=== PATIENT | female | born 1935 | race Caucasian/White ===

== ENCOUNTER 2017-03-03 01:01 | Emergency (ER) | payer MEDICARE, BC ==
--- NOTE | 2017-03-03 02:00 | EDM.PDOC ---
ED HPI GENERAL MEDICAL PROBLEM - General Chief Complaint: General Stated Complaint: FALL WITH HIP PAIN Time Seen by Provider: 03/03/17 01:30 Source of Information: Reports: Patient History Limitations: Reports: No Limitations - History of Present Illness INITIAL COMMENTS - FREE TEXT/NARRATIVE: According to patient she was in the toilet and she was on a 6 inch step stool by the commode, fell on to her right side and hit her right shoulder of the wall and also landed on her right hip. She claims since then she has not walked. C/o pain over the lateral aspect of the hip. No bruising or swelling around the shoulder or hip. EMS was called and brought into the emergency room. Pt had right shoulder replacement at [facility] in Dec 2016. Onset: Today Onset Date: 03/03/17 Onset Time: 01:00 Location: Reports: Upper Extremity, Right, Lower Extremity, Right Severity: Moderate Improves with: Reports: None Worsens with: Reports: None Associated Symptoms: Denies: Confusion, Chest Pain, Fever/Chills, Nausea/ Vomiting, Rash, Seizure, Shortness of Breath, Syncope, Weakness ED ROS GENERAL - Review of Systems Review Of Systems: See Below Constitutional: Denies: Fever, Chills HEENT: Denies: Rhinitis, Throat Pain Respiratory: Denies: Cough, Sputum Cardiovascular: Denies: Chest Pain, Blood Pressure Problem GI/Abdominal: Denies: Abdominal Pain, Nausea, Vomiting Musculoskeletal: Reports: Shoulder Pain, Joint Pain. Denies: Joint Swelling Skin: Denies: Bruising, Erythema ED EXAM, GENERAL - Physical Exam Exam: See Below Exam Limited By: No Limitations General Appearance: Alert, WD/WN, Anxious, Mild Distress Eye Exam: Bilateral Eye: EOMI, PERRL Ears: Normal External Exam, Normal Canal, Hearing Grossly Normal, Normal TMs Ear Exam: Bilateral Ear: Auricle Normal, Canal Normal, TM normal Nose: Normal Inspection, Normal Mucosa, No Blood Throat/Mouth: Normal Inspection, Normal Lips, Normal Teeth, Normal Gums, Normal Oropharynx, Normal Voice, No Airway Compromise Head: Atraumatic, Normocephalic Neck: Normal Inspection, Supple, Non-Tender, Full Range of Motion Respiratory/Chest: No Respiratory Distress, Lungs Clear, Normal Breath Sounds, No Accessory Muscle Use, Chest Non-Tender Cardiovascular: Normal Peripheral Pulses, Regular Rate, Rhythm, No Edema, No Gallop, No JVD, No Murmur, No Rub Peripheral Pulses: 2+: Radial (L), Radial (R) GI/Abdominal: Normal Bowel Sounds, Soft, Non-Tender, No Organomegaly, No Distention, No Abnormal Bruit, No Mass Extremities: Other (Right shoulder: There is scar over the anterior aspect of the shoulder. There is no swelling or bruising of the shoulder. Pt adduct the arm to midchest level.Pt does have good internal and external rotation of the arm. On palpation pt is tender all over the shoulder joint. Right Hip: There is no obvious deformity or swelling around the hip. Pt can flex her hip without discomfort. On palaption around the hip, she is tender over the right greater trochanter to deep pressure. Able to bear weight and walk.) Neurological: Alert, Oriented Course - Vital Signs Text/Narrative:: Right Shoulder: There is no swelling or bruising of the shoulder, she does have good ROM. I did get Xray of the shoulder. Prosthesis is in place and hardware appears normal. I did send the Xray to [facility] for comparison as there are no previous films as she has her care through [facility]. I did get call back from [facility] form 's team. Agrees that the prosthesis is in pal c with no obvious fracture. Advised to continue therapy. Pt was advised to call Dr. Morillo's office on Sunday if she has any significant pain or discomfort. Right Hip; pt is able to flex and extend her hip. She is weight bearing on the rigth lower extremity. Her right hip xray appears normal. reassure that she has soft tissue pain. Pt did receive toradol 30mg IM. her pain in the shoulder and hip improved. Advised to continue tyelnol as needed for pain. Followup with Dr. Morillo's office if her shoulder pain worsens. Also advised to followup with her primary care provider next week. - Orders/Labs/Meds Orders: Active Orders 24 hr Category Date Time Status Hip Min 1V Rt [CR] Stat Exams 03/03/17 01:48 Taken Shoulder 1V Rt [CR] Stat Exams 03/03/17 01:48 Taken Meds: Medications Discontinued Medications Generic Name Dose Route Start Last Admin Trade Name Freq PRN Reason Stop Dose Admin Ketorolac Tromethamine 30 mg 03/03/17 02:27 Toradol IM 03/03/17 02:28 ONETIME ONE Departure - Departure Time of Disposition: 03:00 Disposition: Home, Self-Care 01 Condition: Fair Clinical Impression: Right shoulder pain, Right hip pain - Discharge Information Forms: ED Department Discharge Additional Instructions: Right Shoulder: There is no swelling or bruising of the shoulder, she does have good ROM. I did get Xray of the shoulder. Prosthesis is in place and hardware appears normal. I did send the Xray to [facility] for comparison as there are no previous films as she has her care through [facility]. I did get call back from [facility] form 's team. Agrees that the prosthesis is in pal c with no obvious fracture. Advised to continue therapy. Pt was advised to call Dr. Morillo's office on Sunday if she has any significant pain or discomfort. Right Hip; pt is able to flex and extend her hip. She is weight bearing on the rigth lower extremity. Her right hip xray appears normal. reassure that she has soft tissue pain. Pt did receive toradol 30mg IM. her pain in the shoulder and hip improved. Advised to continue tyelnol as needed for pain. Followup with Dr. Morillo's office if her shoulder pain worsens. Also advised to followup with her primary care provider next week. - Problem List & Annotations (1) Right hip pain SNOMED Code(s): 00224127 Code(s): M25.551 - PAIN IN RIGHT HIP Status: Acute (2) Right shoulder pain SNOMED Code(s): 69120409 Code(s): M25.511 - PAIN IN RIGHT SHOULDER Status: Acute - Problem List Review Problem List Initiated/Reviewed/Updated: Yes - My Orders Last 24 Hours: My Active Orders 03/03/17 01:48 Hip Min 1V Rt [CR] Stat Shoulder 1V Rt [CR] Stat - Assessment/Plan Last 24 Hours: My Active Orders 03/03/17 01:48 Hip Min 1V Rt [CR] Stat Shoulder 1V Rt [CR] Stat Assessment:: Right shoulder and right hip pain s/p fall Plan: Right Shoulder: There is no swelling or bruising of the shoulder, she does have good ROM. I did get Xray of the shoulder. Prosthesis is in place and hardware appears normal. I did send the Xray to [facility] for comparison as there are no previous films as she has her care through [facility]. I did get call back from [facility] form 's team. Agrees that the prosthesis is in pal c with no obvious fracture. Advised to continue therapy. Pt was advised to call Dr. Morillo's office on Sunday if she has any significant pain or discomfort. Right Hip; pt is able to flex and extend her hip. She is weight bearing on the rigth lower extremity. Her right hip xray appears normal. reassure that she has soft tissue pain. Pt did receive toradol 30mg IM. her pain in the shoulder and hip improved. Advised to continue tyelnol as needed for pain. Followup with Dr. Morillo's office if her shoulder pain worsens. Also advised to followup with her primary care provider next week.
[2017-03-03] MEDS ORDERED: Ketorolac 30 MG/ML SDV IM ONE (02:27)
--- NOTE | 2017-03-04 20:20 | CR ---
DATE OF SERVICE: 03/03/2017 CLINICAL DATA: Shoulder injury. RIGHT SHOULDER A single AP view was performed. The patient is status post right total shoulder arthroplasty. No acute abnormalities are noted. A single view is, however, inadequate. [id number] [facility]
--- NOTE | 2017-03-04 20:23 | CR ---
DATE OF SERVICE: 03/03/2017 CLINICAL DATA: Fall. RIGHT HIP A single view was performed. There is diffuse osteopenia. I do not see evidence of a fracture or dislocation. There is a moderate amount of stool noted within the colon. [id number] [facility]
== END 2017-03-03 03:00 | disposition home or self-care (01) ==
LOC: LB.ED 01:01
DX: M25.511 Pain in right shoulder (principal); M25.551 Pain in right hip
CPT/HCPCS: 73020; 73501; 96372; 99283; A0425; A0429; J1885

== ENCOUNTER 2020-06-01 00:24 | Observation (INO) | payer MEDICARE, BC ==
--- NOTE | 2020-06-01 01:23 | EDM.PDOC ---
ED HPI GENERAL MEDICAL PROBLEM - General Chief Complaint: General Stated Complaint: FALL Time Seen by Provider: 06/01/20 01:00 Source of Information: Reports: Patient, EMS History Limitations: Reports: No Limitations - History of Present Illness INITIAL COMMENTS - FREE TEXT/NARRATIVE: 84 years old female known patient of osteoarthritis with S/p multiple joint replacement awoke at 11.30 PM for rest room & she forgot to hold her cane .She tipped her toe fell and landed on right side of body.she was brought here by EMS . She denies any h/o loss of consciousness before or after the fall. She had is c/o pain on right cheek,neck ,right hip & right knee.The pain is sharp 8/10 . denies fever,nausea ,vomiting ,headache ,chest pain,wheezing or shortness of breath ,abd pain Onset: Today, Sudden (3) Duration: Hour(s): (3) Location: Reports: Face, Pelvis, Lower Extremity, Right Quality: Reports: Sharp Severity: Moderate Improves with: Reports: None Worsens with: Reports: Movement Right Hip Pain Score (Numeric/FACES): 7 - Related Data Allergies Allergy/AdvReac Type Severity Reaction Status Date / Time acetaminophen Allergy Change Verified 06/01/20 00:52 [From Tylenol-Codeine #3] Mental Status codeine Allergy Change Verified 06/01/20 00:52 [From Tylenol-Codeine #3] Mental Status Penicillins Allergy Cannot Verified 06/01/20 00:52 Remember Sulfa (Sulfonamide Allergy Cannot Verified 06/01/20 00:52 Antibiotics) Remember Home Meds: Home Meds Acetaminophen [Tylenol Extra Strength] 500 mg PO ASDIRECTED 03/03/17 [History] Calcium Carbonate [Calcium] 600 mg PO DAILY 03/03/17 [History] Esomeprazole [NexIUM] 40 mg PO DAILY 03/03/17 [History] Aspirin 81 mg PO DAILY 06/01/20 [History] Past Medical History HEENT History: Reports: Impaired Vision Cardiovascular History: Reports: Blood Clots/VTE/DVT Respiratory History: Reports: PE Gastrointestinal History: Reports: [employer] History: Reports: Psychiatric History: Reports: Anxiety - Past Surgical History Musculoskeletal Surgical History: Reports: Knee Replacement, Shoulder Repl acement Social & Family History - Family History Family Medical History: No Pertinent Family History - Caffeine Use Caffeine Use: Reports: Coffee ED ROS GENERAL - Review of Systems Review Of Systems: See Below Constitutional: Reports: No Symptoms HEENT: Reports: No Symptoms Respiratory: Reports: No Symptoms, Shortness of Breath, Wheezing, Cough, Sputum Cardiovascular: Reports: No Symptoms, Chest Pain, Dyspnea on Exertion GI/Abdominal: Reports: No Symptoms, Abdominal Pain Musculoskeletal: Reports: Neck Pain, Back Pain, Leg Pain Skin: Reports: Other (bruise over right cheek 7 over right knee) Neurological: Reports: No Symptoms, Headache ED EXAM, GENERAL - Physical Exam Exam: See Below Exam Limited By: No Limitations General Appearance: Alert, WD/WN, No Apparent Distress Head: Atraumatic, Normocephalic (bruise present over the right zygomatic area -) Respiratory/Chest: No Respiratory Distress, Lungs Clear, Normal Breath Sounds, No Accessory Muscle Use, Chest Non-Tender Cardiovascular: Normal Peripheral Pulses, Regular Rate, Rhythm, No Edema, No Gallop, No JVD, No Murmur, No Rub GI/Abdominal: Normal Bowel Sounds, Soft, Non-Tender, No Organomegaly, No Distention, No Abnormal Bruit, No Mass Extremities: Normal Inspection, Non-Tender, Leg Pain (bruise present over right knee ), Limited Range of Motion Neurological: Alert, Oriented, CN II-XII Intact Course - Vital Signs Text/Narrative:: 84 year old female came with h/o fall with multiple injuries vital monitored X ray right hip & right knee ordered ct head ,ct neck ,ct thoracic & ct lumbar spine ordered EKG ordered that shows nonspecific changes -consulted [place] hospitalist & he recommended to repeat troponin in the morning after 4 hours troponin is elevated & I will repeat troponin after 4 hours X ray right knee normal X ray right knee normal CT lumbar spine normal CT thoracic spine normal CT cervical spine normal CT head normal star I/V hydration + 1mg of Dilaudid + Zofran PT/OT consult in morning to asses risk of fall patient is at higher risk of fall ,I decided to admit her her for observation Last Recorded V/S: Last Vital Signs Temp 98.1 F 06/01/20 08:26 Pulse 90 06/01/20 08:26 Resp 18 06/01/20 08:26 BP 150/92 H 06/01/20 08:26 Pulse Ox 99 06/01/20 08:26 - Orders/Labs/Meds Orders: Active Orders 24 hr Category Date Time Status EKG Documentation Completion [RC] ASDIRECTED Care 06/01/20 02:05 Active Medication Orders Sodium Chloride (Normal Saline) 1,000 mls @ 125 mls/hr IV ASDIRECTED MARCIA Last Admin: 06/01/20 03:40 Dose: 125 mls/hr Documented by: IZA Sodium Chloride (Saline Flush) 10 ml FLUSH ASDIRECTED PRN PRN Reason: Keep Vein Open Labs: Laboratory Tests 06/01/20 06/01/20 06/01/20 Range/Units 02:04 02:04 02:10 WBC 9.2 (4.0-11.0) K/uL RBC 4.13 (3.80-5.80) M/uL Hgb 11.9 (11.5-16.5) g/dL Hct 37.2 (37.0-47.0) % MCV 90 (76-96) fL MCH 28.8 (27.0-32.0) pg MCHC 32.0 (31.0-35.0) g/dL RDW 14.4 (11.0-16.0) % Plt Count 300 (150-500) K/uL MPV 11.0 H (6.0-10.0) fL Neut % (Auto) 71.3 H (45.0-70.0) % Lymph % (Auto) 17.4 L (20.0-40.0) % [place] % (Auto) 9.2 (3.0-10.0) % Eos % (Auto) 1.1 (1.0-5.0) % Baso % (Auto) 1.0 H (0.0-0.5) % Neut # (Auto) 6.57 (2.00-7.50) K/uL Lymph # (Auto) 1.60 (1.50-4.00) K/uL [facility] # (Auto) 0.85 H (0.20-0.80) K/uL Eos # (Auto) 0.10 (0.04-0.40) K/uL Baso # (Auto) 0.09 (0.02-0.10) K/uL Sodium 143 (136-145) mmol/L Potassium 3.0 L (3.5-5.1) mmol/L Chloride 105 (98-107) mmol/L Carbon Dioxide 26.1 (21.0-32.0) mmol/L Anion Gap 14.9 (5.0-15.0) mmol/L BUN 23 (8-26) mg/dL Creatinine 1.09 H (0.55-1.02) mg/dL Est Cr Clr Drug Dosing 37.42 mL/min Estimated GFR (MDRD) 48 L (>60) MLS/MIN BUN/Creatinine Ratio 21.1 (6-25) Glucose 94 (74-100) mg/dL Calcium 9.0 (8.5-10.1) mg/dL Total Bilirubin 0.4 (0.0-1.0) mg/dL AST 25 (15-37) U/L ALT 24 (12-78) U/L Alkaline Phosphatase 59 (46-116) U/L Troponin I 0.660 H* (0.000-0.060) ng/mL Total Protein 6.6 (6.4-8.2) g/dL Albumin 3.8 (3.4-5.0) g/dL Globulin 2.8 (2.2-4.2) g/dL Albumin/Globulin Ratio 1.4 (0.8-2.0) Urine Color Urine Appearance (CLEAR) Urine pH (5.0-8.0) Ur Specific [place] (1.003-1.030) Urine Protein (NEGATIVE) mg/dL Urine Glucose (UA) (NEGATIVE) mg/dL Urine Ketones (NEGATIVE) mg/dL Urine Occult Blood (NEGATIVE) Urine Nitrite (NEGATIVE) Urine Bilirubin (NEGATIVE) Urine Urobilinogen (0.2-1.0) E.U./dL Ur Leukocyte Esterase (NEGATIVE) Urine RBC /HPF Urine WBC /HPF Ur Epithelial Cells /HPF Urine Bacteria /HPF SARS-CoV-2 RNA (BALTAZAR) Negative (NEGATIVE) 06/01/20 Range/Units 02:30 WBC (4.0-11.0) K/uL RBC (3.80-5.80) M/uL Hgb (11.5-16.5) g/dL Hct (37.0-47.0) % MCV (76-96) fL MCH (27.0-32.0) pg MCHC (31.0-35.0) g/dL RDW (11.0-16.0) % Plt Count (150-500) K/uL MPV (6.0-10.0) fL Neut % (Auto) (45.0-70.0) % Lymph % (Auto) (20.0-40.0) % [place] % (Auto) (3.0-10.0) % Eos % (Auto) (1.0-5.0) % Baso % (Auto) (0.0-0.5) % Neut # (Auto) (2.00-7.50) K/uL Lymph # (Auto) (1.50-4.00) K/uL [facility] # (Auto) (0.20-0.80) K/uL Eos # (Auto) (0.04-0.40) K/uL Baso # (Auto) (0.02-0.10) K/uL Sodium (136-145) mmol/L Potassium (3.5-5.1) mmol/L Chloride (98-107) mmol/L Carbon Dioxide (21.0-32.0) mmol/L Anion Gap (5.0-15.0) mmol/L BUN (8-26) mg/dL Creatinine (0.55-1.02) mg/dL Est Cr Clr Drug Dosing mL/min Estimated GFR (MDRD) (>60) MLS/MIN BUN/Creatinine Ratio (6-25) Glucose (74-100) mg/dL Calcium (8.5-10.1) mg/dL Total Bilirubin (0.0-1.0) mg/dL AST (15-37) U/L ALT (12-78) U/L Alkaline Phosphatase (46-116) U/L Troponin I (0.000-0.060) ng/mL Total Protein (6.4-8.2) g/dL Albumin (3.4-5.0) g/dL Globulin (2.2-4.2) g/dL Albumin/Globulin Ratio (0.8-2.0) Urine Color Yellow Urine Appearance Clear (CLEAR) Urine pH 7.0 (5.0-8.0) Ur Specific [place] 1.020 (1.003-1.030) Urine Protein Trace H (NEGATIVE) mg/dL Urine Glucose (UA) Negative (NEGATIVE) mg/dL Urine Ketones Negative (NEGATIVE) mg/dL Urine Occult Blood Trace-intact H (NEGATIVE) Urine Nitrite Negative (NEGATIVE) Urine Bilirubin Negative (NEGATIVE) Urine Urobilinogen 0.2 (0.2-1.0) E.U./dL Ur Leukocyte Esterase Negative (NEGATIVE) Urine RBC 0-5 H /HPF Urine WBC 0-5 H /HPF Ur Epithelial Cells Few /HPF Urine Bacteria Few /HPF SARS-CoV-2 RNA (BALTAZAR) (NEGATIVE) Meds: Medications Generic Name Dose Route Start Last Admin Trade Name Freq PRN Reason Stop Dose Admin Sodium Chloride 1,000 mls @ 125 mls/hr 06/01/20 02:45 06/01/20 03:40 Normal Saline IV 125 mls/hr ASDIRECTED MARCIA Administration Sodium Chloride 10 ml 06/01/20 02:40 Saline Flush FLUSH ASDIRECTED PRN Keep Vein Open Discontinued Medications Generic Name Dose Route Start Last Admin Trade Name Freq PRN Reason Stop Dose Admin Hydromorphone HCl 1 mg 06/01/20 02:40 06/01/20 03:13 Dilaudid IVPUSH 06/01/20 02:41 1 mg ONETIME ONE Administration Hydromorphone HCl Confirm 06/01/20 03:10 06/01/20 03:13 Dilaudid Administered 06/01/20 03:11 Not Given Dose 2 mg .ROUTE .STK-MED ONE Ondansetron HCl 4 mg 06/01/20 03:10 06/01/20 03:13 Zofran IVPUSH 06/01/20 03:11 4 mg ONETIME ONE Administration Ondansetron HCl Confirm 06/01/20 03:21 06/01/20 03:54 Zofran Administered 06/01/20 03:22 Not Given Dose 4 mg .ROUTE .STK-MED ONE Departure - Departure Time of Disposition: 03:00 Disposition: Refer to Observation Clinical Impression: Fall (on) (from) other stairs and steps, initial encounter - Discharge Information Sepsis Event Note (ED) - Focused Exam Vital Signs: Vital Signs Temp Pulse Resp BP Pulse Ox 06/01/20 00:53 98.8 F 86 18 183/96 H 100 06/01/20 00:32 98.8 F 86 18 183/96 H 100 - Problem List & Annotations (1) Fall (on) (from) other stairs and steps, initial encounter SNOMED Code(s): 399427553 Code(s): W10.8XXA - FALL (ON) (FROM) OTHER STAIRS AND STEPS, INITIAL ENCOUNTER Status: Acute Priority: Medium Current Visit: Yes (2) Dizziness SNOMED Code(s): 868184279, 106412228 Code(s): R42 - DIZZINESS AND GIDDINESS Status: Acute Priority: Medium Current Visit: Yes Onset Date: ~06/01/20 - My Orders Last 24 Hours: My Active Orders 06/01/20 02:05 EKG Documentation Completion [RC] ASDIRECTED - Assessment/Plan Last 24 Hours: My Active Orders 06/01/20 02:05 EKG Documentation Completion [RC] ASDIRECTED Plan: As patient is feeling dizzy ,& had elevated troponin , I decided to admit her observation to check troponin in the morning Also to check risk of fall by Physical therapist
[2020-06-01] MEDS ORDERED: HYDROmorphone 2 MG/ML SDV IVPUSH ONE (02:40)
[2020-06-01] MEDS ORDERED: Sodium Chloride 0.9% 10 ML Syringe FLUSH PRN (02:40)
[2020-06-01] MEDS ORDERED: Sodium Chloride 0.9% 1,000 ML IV SCH (02:45)
[2020-06-01] MEDS ORDERED: Ondansetron 4 MG/2 ML SDV IVPUSH ONE (03:10)
[2020-06-01] MEDS ORDERED: HYDROmorphone 2 MG/ML SDV ONE ×2 (03:10→10:52)
[2020-06-01] MEDS ORDERED: Ondansetron 4 MG/2 ML SDV ONE (03:21)
--- NOTE | 2020-06-01 08:32 | CR ---
Date of Service: 06/01/20 Clinical Data: FALL RIGHT KNEE: No priors. The patient is status post right total knee arthroplasty. The prosthesis appears intact. No acute abnormalities. No lytic or blastic bone lesions. There is a small joint effusion. [id number] [facility]
--- NOTE | 2020-06-01 08:36 | CT ---
Date of Service: 06/01/20 Clinical Data: FALL UNENHANCED BRAIN CT: Multislice acquisition through the brain without IV contrast was performed. Comparison is made to a prior exam dated 12/03/10. There is diffuse cerebral atrophy. There are periventricular lucencies bilaterally consistent with small vessel ischemic change. No masses or mass effect. No intracranial hemorrhage. No evidence of acute or subacute infarct. There is soft tissue swelling adjacent to the right maxilla. No fractures. IMPRESSION: No acute intracranial abnormalities. [id number] [facility]
--- NOTE | 2020-06-01 08:38 | CR ---
Date of Service: 06/01/20 Clinical Data: FALL RIGHT HIP: No acute fracture or dislocation. No lytic or blastic bone lesions. Mild osteoarthritic change of the right hip joint. [id number] [facility]
--- NOTE | 2020-06-01 08:43 | CT ---
Date of Service: 06/01/20 Clinical Data: FALL CERVICAL SPINE CT: Multislice axial acquisition was performed. Axial images and sagittal and coronal reformations are reviewed. The vertebral bodies are of average height and in good alignment. No acute fracture or dislocation. No lytic or blastic bone lesions. There is degenerative disk disease at multiple levels with disk space narrowing at the C5-6 level. There is facet joint hypertrophy throughout the cervical spine. There are degenerative changes involving the atlantoaxial articulation. The lung apices are clear. No lytic or blastic bone lesions. IMPRESSION: No acute abnormalities. Other findings as discussed above. [id number] [facility]
--- NOTE | 2020-06-01 08:47 | CT ---
Date of Service: 06/01/20 Clinical Data: FALL LUMBAR SPINE CT: Multislice axial acquisition from T10 to S4 was performed. Axial images and sagittal and coronal reformations are reviewed. The vertebral bodies are of average height and in good alignment. No acute fracture or dislocation. There is severe degenerative disk disease throughout the lower thoracic and lumbar spine. There is facet joint hypertrophy throughout the lumbar spine. No focal lytic or blastic bone lesions. There is a large amount of stool present throughout the visualized colon. IMPRESSION: No acute abnormalities. Multiple other findings as discussed above. [id number] [facility]
--- NOTE | 2020-06-01 08:51 | CT ---
Date of Service: 06/01/20 Clinical Data: FALL THORACIC SPINE CT: Multislice axial acquisition was performed. Axial images and sagittal and coronal reformations are reviewed. There is diffuse osteopenia. The vertebral bodies are of average height and in good alignment. No acute fracture or dislocation. There is degenerative disk disease throughout the thoracic spine with disk space narrowing diffusely. There is facet joint hypertrophy throughout the thoracic spine. No lytic or blastic bone lesions. There are atelectatic changes of the dependent portions of both lungs. There is a large hiatal hernia. No other significant findings. IMPRESSION: No acute abnormalities. Multiple other findings as discussed above. [id number] [facility]
[2020-06-01] MEDS ORDERED: Sodium Chloride 0.9% 50 ML SDV FLUSH ONE (10:31)
[2020-06-01] MEDS ORDERED: Iodixanol 652 MG/ML 100 ML Bottle IV SCH (10:45)
--- NOTE | 2020-06-01 11:40 | PCM.DCSUM1 ---
Discharge Summary - Hospital Course Free Text/Narrative:: 84 year old female came to ED with c/o fall during last night - She awoke for bath room at night & tipped her toe & landed on right side of body .she had a bruise & swelling on right zygomatic arch .Tenderness also present on right zygomatic arch & right knee . she was a little dizzy & c/o pain on right side of body ,especially on right hip & right knee. CT head ,neck,thoracic ,lumbar spine were negative.X ray right hip & knee were negative . I also did labs that showed elevated troponin -I did EKG that shows non-specific changes -I consulted E hospitalist regarding EKG -He recommended to repeat troponin after 4 hours which was high too 1.631 -& discuss with [employer] worker,Dr Dozier -He advised to do d-dimer -that was elevated 1919.He advised to start heparin drip& transfer to [facility] I spoke with dr Llamas & decided to transfer her to [facility] -he also recommended to to do ct chest before transfer - Disposition- The patient was transferred to [facility] Medication - heparin drip on way & inj Dilaudid 1mg if needed Diagnosis: Stroke: No - Discharge Data Discharge Date: 06/01/20 Discharge Disposition: DC/Tfer to Acute Hospital 02 Condition: Good - Referral to Home Health Primary Care Physician: PCP None - Discharge Diagnosis/Problem(s) (1) Fall (on) (from) other stairs and steps, initial encounter SNOMED Code(s): 607629034 ICD Code: W10.8XXA - FALL (ON) (FROM) OTHER STAIRS AND STEPS, INITIAL ENCOU NTER Status: Acute Priority: Medium Current Visit: Yes Onset Date: ~06/01/20 (2) Dizziness SNOMED Code(s): 517459667, 246523477 ICD Code: R42 - DIZZINESS AND GIDDINESS Status: Acute Priority: Medium Current Visit: Yes Onset Date: ~06/01/20 (3) Elevated troponin SNOMED Code(s): 202608533, 584210299, 520610747 ICD Code: R77.8 - OTHER SPECIFIED ABNORMALITIES OF PLASMA PROTEINS Status: Acute Priority: Medium Current Visit: Yes Onset Date: ~06/01/20 (4) Elevated d-dimer SNOMED Code(s): 883469485 ICD Code: R79.89 - OTHER SPECIFIED ABNORMAL FINDINGS OF BLOOD CHEMISTRY Status: Acute Current Visit: Yes - Patient Summary/Data Consults: Consultations 06/01/20 08:00 OT Evaluation and Treatment [CONS] Routine Please Evaluate and Treat. OT Reason for Consult: falls This query below is only for informational purposes and is not editable. Admission Diagnosis/Problem: Falls PT Evaluation and Treatment [CONS] Routine Please Evaluate and Treat. PT Reason for Consult: falls This query below is only for informational purposes and is not editable. Admission Diagnosis/Problem: Falls - Patient Instructions Diet: Usual Diet as Tolerated Activity: As Tolerated Driving: Do Not Drive - Discharge Plan *PRESCRIPTION DRUG MONITORING PROGRAM REVIEWED*: No *COPY OF PRESCRIPTION DRUG MONITORING REPORT IN PATIENT ALEN: No Home Medications: Home Meds Acetaminophen [Tylenol Extra Strength] 500 mg PO ASDIRECTED 03/03/17 [History] Calcium Carbonate [Calcium] 600 mg PO DAILY 03/03/17 [History] Esomeprazole [NexIUM] 40 mg PO DAILY 03/03/17 [History] RX: Aspirin 81 mg PO DAILY 06/01/20 [History] - Discharge Summary/Plan Comment DC Time >30 min.: Yes - Patient Data Vitals - Most Recent: Last Vital Signs Temp 98.1 F 06/01/20 08:26 Pulse 90 06/01/20 08:26 Resp 18 06/01/20 08:26 BP 150/92 H 06/01/20 08:26 Pulse Ox 99 06/01/20 08:26 Weight - Most Recent: 141 lb 1.6 oz Lab Results - Last 24 hrs: Laboratory Results - last 24 hr 06/01/20 06/01/20 06/01/20 Range/Units 02:04 02:04 02:10 WBC 9.2 (4.0-11.0) K/uL RBC 4.13 (3.80-5.80) M/uL Hgb 11.9 (11.5-16.5) g/dL Hct 37.2 (37.0-47.0) % MCV 90 (76-96) fL MCH 28.8 (27.0-32.0) pg MCHC 32.0 (31.0-35.0) g/dL RDW 14.4 (11.0-16.0) % Plt Count 300 (150-500) K/uL MPV 11.0 H (6.0-10.0) fL Neut % (Auto) 71.3 H (45.0-70.0) % Lymph % (Auto) 17.4 L (20.0-40.0) % [place] % (Auto) 9.2 (3.0-10.0) % Eos % (Auto) 1.1 (1.0-5.0) % Baso % (Auto) 1.0 H (0.0-0.5) % Neut # (Auto) 6.57 (2.00-7.50) K/uL Lymph # (Auto) 1.60 (1.50-4.00) K/uL [place] # (Auto) 0.85 H (0.20-0.80) K/uL Eos # (Auto) 0.10 (0.04-0.40) K/uL Baso # (Auto) 0.09 (0.02-0.10) K/uL D-Dimer, Quantitative (0-400) ng/mL Sodium 143 (136-145) mmol/L Potassium 3.0 L (3.5-5.1) mmol/L Chloride 105 (98-107) mmol/L Carbon Dioxide 26.1 (21.0-32.0) mmol/L Anion Gap 14.9 (5.0-15.0) mmol/L BUN 23 (8-26) mg/dL Creatinine 1.09 H (0.55-1.02) mg/dL Est Cr Clr Drug Dosing 37.42 mL/min Estimated GFR (MDRD) 48 L (>60) MLS/MIN BUN/Creatinine Ratio 21.1 (6-25) Glucose 94 (74-100) mg/dL Calcium 9.0 (8.5-10.1) mg/dL Total Bilirubin 0.4 (0.0-1.0) mg/dL AST 25 (15-37) U/L ALT 24 (12-78) U/L Alkaline Phosphatase 59 (46-116) U/L Troponin I 0.660 H* (0.000-0.060) ng/mL Total Protein 6.6 (6.4-8.2) g/dL Albumin 3.8 (3.4-5.0) g/dL Globulin 2.8 (2.2-4.2) g/dL Albumin/Globulin Ratio 1.4 (0.8-2.0) Urine Color Urine Appearance (CLEAR) Urine pH (5.0-8.0) Ur Specific [place] (1.003-1.030) Urine Protein (NEGATIVE) mg/dL Urine Glucose (UA) (NEGATIVE) mg/dL Urine Ketones (NEGATIVE) mg/dL Urine Occult Blood (NEGATIVE) Urine Nitrite (NEGATIVE) Urine Bilirubin (NEGATIVE) Urine Urobilinogen (0.2-1.0) E.U./dL Ur Leukocyte Esterase (NEGATIVE) Urine RBC /HPF Urine WBC /HPF Ur Epithelial Cells /HPF Urine Bacteria /HPF SARS-CoV-2 RNA (BALTAZAR) Negative (NEGATIVE) 06/01/20 06/01/20 06/01/20 Range/Units 02:30 07:00 07:00 WBC (4.0-11.0) K/uL RBC (3.80-5.80) M/uL Hgb (11.5-16.5) g/dL Hct (37.0-47.0) % MCV (76-96) fL MCH (27.0-32.0) pg MCHC (31.0-35.0) g/dL RDW (11.0-16.0) % Plt Count (150-500) K/uL MPV (6.0-10.0) fL Neut % (Auto) (45.0-70.0) % Lymph % (Auto) (20.0-40.0) % [place] % (Auto) (3.0-10.0) % Eos % (Auto) (1.0-5.0) % Baso % (Auto) (0.0-0.5) % Neut # (Auto) (2.00-7.50) K/uL Lymph # (Auto) (1.50-4.00) K/uL [place] # (Auto) (0.20-0.80) K/uL Eos # (Auto) (0.04-0.40) K/uL Baso # (Auto) (0.02-0.10) K/uL D-Dimer, Quantitative 1920 H (0-400) ng/mL Sodium (136-145) mmol/L Potassium (3.5-5.1) mmol/L Chloride (98-107) mmol/L Carbon Dioxide (21.0-32.0) mmol/L Anion Gap (5.0-15.0) mmol/L BUN (8-26) mg/dL Creatinine (0.55-1.02) mg/dL Est Cr Clr Drug Dosing mL/min Estimated GFR (MDRD) (>60) MLS/MIN BUN/Creatinine Ratio (6-25) Glucose (74-100) mg/dL Calcium (8.5-10.1) mg/dL Total Bilirubin (0.0-1.0) mg/dL AST (15-37) U/L ALT (12-78) U/L Alkaline Phosphatase (46-116) U/L Troponin I 1.631 H* D (0.000-0.060) ng/mL Total Protein (6.4-8.2) g/dL Albumin (3.4-5.0) g/dL Globulin (2.2-4.2) g/dL Albumin/Globulin Ratio (0.8-2.0) Urine Color Yellow Urine Appearance Clear (CLEAR) Urine pH 7.0 (5.0-8.0) Ur Specific [place] 1.020 (1.003-1.030) Urine Protein Trace H (NEGATIVE) mg/dL Urine Glucose (UA) Negative (NEGATIVE) mg/dL Urine Ketones Negative (NEGATIVE) mg/dL Urine Occult Blood Trace-intact H (NEGATIVE) Urine Nitrite Negative (NEGATIVE) Urine Bilirubin Negative (NEGATIVE) Urine Urobilinogen 0.2 (0.2-1.0) E.U./dL Ur Leukocyte Esterase Negative (NEGATIVE) Urine RBC 0-5 H /HPF Urine WBC 0-5 H /HPF Ur Epithelial Cells Few /HPF Urine Bacteria Few /HPF SARS-CoV-2 RNA (BALTAZAR) (NEGATIVE) Med Orders - Current: Current Medications Sodium Chloride (Normal Saline) 1,000 mls @ 125 mls/hr IV ASDIRECTED MARCIA Last Admin: 06/01/20 03:40 Dose: 125 mls/hr Documented by: Iodixanol (Visipaque 320) 100 ml IV ASDIRECTED MARCIA Stop: 06/01/20 23:59 Sodium Chloride (Saline Flush) 10 ml FLUSH ASDIRECTED PRN PRN Reason: Keep Vein Open Discontinued Medications Hydromorphone HCl (Dilaudid) 1 mg IVPUSH ONETIME ONE Stop: 06/01/20 02:41 Last Admin: 06/01/20 03:13 Dose: 1 mg Documented by: Hydromorphone HCl (Dilaudid) Confirm Administered Dose 2 mg .ROUTE .STK-MED ONE Stop: 06/01/20 03:11 Last Admin: 06/01/20 03:13 Dose: Not Given Documented by: Hydromorphone HCl (Dilaudid) Confirm Administered Dose 2 mg .ROUTE .STK-MED ONE Stop: 06/01/20 10:53 Ondansetron HCl (Zofran) 4 mg IVPUSH ONETIME ONE Stop: 06/01/20 03:11 Last Admin: 06/01/20 03:13 Dose: 4 mg Documented by: Ondansetron HCl (Zofran) Confirm Administered Dose 4 mg .ROUTE .STK-MED ONE Stop: 06/01/20 03:22 Last Admin: 06/01/20 03:54 Dose: Not Given Documented by: Sodium Chloride (Normal Saline) 50 ml FLUSH ONETIME ONE Stop: 06/01/20 10:32
--- NOTE | 2020-06-01 11:52 | CT ---
DATE OF SERVICE: 06/01/2020 CLINICAL DATA: Fall Orbit CT: Multi slice axial acquisition was performed without IV contrast. Axial images and sagittal coronal reformations are reviewed. There is minimal mucosal thickening in the ethmoid sinuses consistent with chronic sinusitis. The remaining visualized sinuses are clear. No air-fluid levels. There is deviation nasal septum to the left. There is soft tissue swelling of the middle and inferior nasal turbinates. There is mild soft tissue swelling adjacent to the right maxilla. There is also mild soft tissue swelling anterior to the frontal bone. The globes are symmetric and appear normal. The optic nerves and extraocular muscles appear normal. No orbital masses. No abnormal fluid collections within the orbits. No fractures. MTDD
--- NOTE | 2020-06-01 12:00 | CT ---
DATE OF SERVICE: 06/01/2020 CLINICAL DATA: Elevated D-Dimer Enhanced Chest CT: Multi slice acquisition through the chest with IV contrast was performed. No priors. No evidence of PE. No pneumothorax. No pleural effusions. No aortic aneurysm or dissection. There are atelectatic changes in the dependent portion of both lungs with a small area of consolidation in the right costophrenic angle. There is a 5 mm pleural based nodule in the right lower lobe laterally. There are scattered reticular opacities throughout both lungs. The lungs are otherwise clear. The heart size is at the upper limits of normal. Small pericardial effusion. No hilar or mediastinal adenopathy. There is a large hiatal hernia. 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 [facility]
--- NOTE | 2020-06-01 12:54 | CR ---
DATE OF SERVICE: 06/01/2020 CLINICAL DATA: FALL RIGHT ANKLE: No priors. There is diffuse osteopenia. There are mild osteoarthritic changes involving multiple joints. No acute fracture or dislocation. No lytic or blastic bone lesions. LEFT ANKLE: No priors. There is diffuse osteopenia. There are mild osteoarthritic changes involving multiple joints. No acute fracture or dislocation. No focal lytic or blastic bone lesions. [id number] [facility]
== END 2020-06-01 11:00 ==
LOC: LB.ED 00:24 → LB.MS 02:37 → UNDOADMOB 03:17
PROVIDERS: ADMIT Physician Assistant; ATTEND Physician Assistant
DX: R42 Dizziness and giddiness (principal); R77.8 Other specified abnormalities of plasma proteins; R79.89 Other specified abnormal findings of blood chemistry; Z20.822 Contact with and (suspected) exposure to COVID-19; Z88.5 Allergy status to narcotic agent; Z88.0 Allergy status to penicillin; Z88.2 Allergy status to sulfonamides; Z79.899 Other long term (current) drug therapy; Z79.82 Long term (current) use of aspirin; W19.XXXA Unspecified fall, initial encounter; Y92.009 Unspecified place in unspecified non-institutional (private) residence as the place of occurrence of the external cause
CPT/HCPCS: 36415; 70450; 70480; 71260; 72125; 72128; 72131; 73502-RT; 73560-RT; 73600-50; 80053; 81001; 84484; 85025; 85379; 87070; 93005; 96374; 96375; 99236; 99285-25; A0425; A0429; G0378; J1170; J2405; J7030; U0002